=== PATIENT | female | born 1970 | race Caucasian/White ===

== ENCOUNTER 2017-02-11 09:01 | Emergency (ER) | payer BC ==
[~2017-02-11] VITALS: Ht 170.2 cm; Wt 82.3 kg
[2017-02-11] MEDS ORDERED: MECLIZINE HCL25 MG PO (09:27)
[2017-02-11] MEDS ORDERED: VENLAFAXINE225 MG PO (09:28)
[2017-02-11] MEDS ORDERED: COMPAZINE10 MG PO (09:28)
[2017-02-11 09:55] LABS: ADD MIUA? YES; BILIRUBIN NEGATIVE; BLOOD LARGE; COLOR YELLOW ((YELLOW)); GLUCOSE (STRIP) NEGATIVE; KETONES 5; LEUKOCYTES SMALL; NITRITE NEGATIVE; PROTEIN (STRIP) 30; SPECIFIC GRAVITY 1.029 (1.000-1.030); UROBILINOGEN 0.2 MG/DL (0.2-1.0)
[2017-02-11 10:00] LABS: HEMATOCRIT 43.9 % (36.0-46.0); MCH 30.9 PG (29.0-34.0); MCHC 31.9 G/DL (30.0-36.0); MCV 96.9 FL (83-99); PLATELET COUNT 272 K/uL (156-360); RBC DIS.WIDTH-SD 46.9 % (39-53); RED BLOOD COUNT 4.53 M/uL (3.80-5.20); WHITE BLOOD COUNT 8.8 K/uL (4.1-10.2)
[2017-02-11 10:04] LABS: INFLUENZA A VIRAL ANTIGEN NEGATIVE; INFLUENZA B VIRAL ANTIGEN NEGATIVE
[2017-02-11 10:08] LABS: CHLORIDE 108 mEq/L (99-109); POTASSIUM 3.9 mEq/L (3.7-5.4); SODIUM 142 mEq/L (136-147)
[2017-02-11 10:10] LABS: GLUCOSE 128 mg/dL (70-99)
[2017-02-11 10:12] LABS: ANION GAP 10 MEQ/L (2-14); TOTAL BILIRUBIN 0.3 mg/dL (0.0-1.0)
[2017-02-11 10:13] LABS: BACTERIA RARE /HPF; CALCIUM OXALATE CRYSTALS 2+ /HPF; EPITHELIAL CELLS RARE /HPF; MUCUS 1+ /LPF; RED BLOOD CELLS TNTC /HPF (0-5); UCUL ADDED? NO
[2017-02-11 10:14] LABS: ALKALINE PHOSPHATASE 55 IU/L (3-129); GFR ESTIMATE (CALCULATED) > 59 mL/min/
[2017-02-11 10:15] LABS: UREA NITROGEN (BUN) 13 mg/dL (9-23)
[2017-02-11 10:18] LABS: LIPASE 16 U/L (1.0-51.0)
[2017-02-11] MEDS ORDERED: PHENERGAN25 MG PR (11:16)
[2017-02-11] MEDS ORDERED: MACROBID100 MG PO (11:16)
[2017-02-11] MEDS ORDERED: ZOFRAN ODT4 MG PO (11:16)
[2017-02-11 13:22] VITALS: BP 122/64
== END 2017-02-11 13:23 | disposition home or self-care (01) ==
LOC: EME 09:01
PROVIDERS: Nurse Practitioner Family
DX: B34.9 Viral infection, unspecified (principal); N39.0 Urinary tract infection, site not specified
CPT/HCPCS: 80053; 81003; 83690; 85027; 87502; 99281; 99285; J2765